=== PATIENT | male | born 1960 | race Two or more races ===

== ENCOUNTER 2025-03-31 17:47 | Emergency (ER) | payer SELFPAY | END 2025-03-31 18:37 | disposition home or self-care (01) | LOC: MW.ED 17:47 | DX: L02.02 Furuncle of face (principal); E11.9 Type 2 diabetes mellitus without complications; Z75.3 Unavailability and inaccessibility of health-care facilities; Z79.84 Long term (current) use of oral hypoglycemic drugs; Z79.899 Other long term (current) drug therapy | CPT/HCPCS: 99283 ==